=== PATIENT | female | born 1975 | race Caucasian/White ===

== ENCOUNTER 2020-06-09 15:00 | Outpatient (RCR) | payer OTHER, SELFPAY | END 2020-06-11 23:59 | LOC: NS 15:00 | PROVIDERS: PCP Nurse Practitioner; Visit Provider Nurse Practitioner | DX: Z71.3 Dietary counseling and surveillance (principal); E88.81 Metabolic syndrome and other insulin resistance; G47.10 Hypersomnia, unspecified; I10 Essential (primary) hypertension; E66.01 Morbid (severe) obesity due to excess calories; Z68.42 Body mass index [BMI] 45.0-49.9, adult | CPT/HCPCS: 97802; 97803 ==

== ENCOUNTER 2020-07-07 15:00 | Outpatient (RCR) | payer OTHER, SELFPAY ==
[2013-09-11 15:48] VITALS: BMI 47.6
== END 2020-07-11 23:59 ==
LOC: NS 15:00
PROVIDERS: PCP Nurse Practitioner; Visit Provider Nurse Practitioner
DX: Z71.3 Dietary counseling and surveillance (principal); E88.81 Metabolic syndrome and other insulin resistance; E66.01 Morbid (severe) obesity due to excess calories; G47.10 Hypersomnia, unspecified; I10 Essential (primary) hypertension; Z68.42 Body mass index [BMI] 45.0-49.9, adult
CPT/HCPCS: 97803

== ENCOUNTER 2020-08-04 15:44 | Outpatient (RCR) | payer OTHER, SELFPAY ==
[2013-09-11 15:48] VITALS: BMI 47.6
== END 2020-08-11 23:59 ==
LOC: NS 15:44
PROVIDERS: PCP Nurse Practitioner; Visit Provider Nurse Practitioner
DX: E88.81 Metabolic syndrome and other insulin resistance (principal); E66.01 Morbid (severe) obesity due to excess calories; G47.10 Hypersomnia, unspecified; I10 Essential (primary) hypertension; Z68.42 Body mass index [BMI] 45.0-49.9, adult
CPT/HCPCS: 97803

== ENCOUNTER 2020-08-19 09:29 | Outpatient (RCR) | payer OTHER, SELFPAY ==
[2013-09-11 15:48] VITALS: BMI 47.6
== END 2020-09-10 23:59 ==
LOC: NS 09:29
PROVIDERS: PCP Nurse Practitioner; Visit Provider Nurse Practitioner
DX: E88.81 Metabolic syndrome and other insulin resistance (principal); E66.01 Morbid (severe) obesity due to excess calories; G47.10 Hypersomnia, unspecified; I10 Essential (primary) hypertension; Z68.42 Body mass index [BMI] 45.0-49.9, adult
CPT/HCPCS: 97803

== ENCOUNTER 2020-09-30 14:00 | Outpatient (RCR) | payer OTHER, SELFPAY ==
[2013-09-11 15:48] VITALS: BMI 47.6
== END 2020-10-11 23:59 ==
LOC: NS 14:00
PROVIDERS: PCP Nurse Practitioner; Visit Provider Nurse Practitioner
DX: E88.81 Metabolic syndrome and other insulin resistance (principal); E66.01 Morbid (severe) obesity due to excess calories; G47.10 Hypersomnia, unspecified; I10 Essential (primary) hypertension; Z68.42 Body mass index [BMI] 45.0-49.9, adult
CPT/HCPCS: 97803

== ENCOUNTER 2020-11-03 14:58 | Outpatient (RCR) | payer OTHER, SELFPAY ==
[2013-09-11 15:48] VITALS: BMI 47.6
== END 2020-11-11 23:59 ==
LOC: NS 14:58
PROVIDERS: PCP Nurse Practitioner; Visit Provider Nurse Practitioner
DX: E88.81 Metabolic syndrome and other insulin resistance (principal); E66.01 Morbid (severe) obesity due to excess calories; G47.10 Hypersomnia, unspecified; I10 Essential (primary) hypertension; Z68.42 Body mass index [BMI] 45.0-49.9, adult
CPT/HCPCS: 97803

== ENCOUNTER 2020-12-02 15:00 | Outpatient (RCR) | payer OTHER, SELFPAY | END 2020-12-11 23:59 | LOC: NS 15:00 | PROVIDERS: PCP Nurse Practitioner; Visit Provider Nurse Practitioner | DX: E88.81 Metabolic syndrome and other insulin resistance (principal); E66.01 Morbid (severe) obesity due to excess calories; G47.10 Hypersomnia, unspecified; I10 Essential (primary) hypertension; Z68.42 Body mass index [BMI] 45.0-49.9, adult | CPT/HCPCS: 97803 ==

== ENCOUNTER 2020-12-29 10:23 | Outpatient (RCR) | payer OTHER, SELFPAY | END 2021-01-11 23:59 | LOC: NS 10:23 | PROVIDERS: PCP Nurse Practitioner; Visit Provider Nurse Practitioner | DX: E88.81 Metabolic syndrome and other insulin resistance (principal); E66.01 Morbid (severe) obesity due to excess calories; G47.10 Hypersomnia, unspecified; I10 Essential (primary) hypertension; Z68.42 Body mass index [BMI] 45.0-49.9, adult | CPT/HCPCS: 97803 ==

== ENCOUNTER 2021-03-20 15:07 | Outpatient (CLI) | payer OTHER, SELFPAY ==
--- NOTE | 2021-03-20 15:16 | RAD_ITS ---
STUDY: X-RAY CHEST REASON FOR EXAM: Female, 46 years old. COUGH TECHNIQUE: PA and lateral views of the chest. COMPARISON: Comparison is made with prior study dated 09/11/2013. FINDINGS: I suspect an early right middle lobe infiltrate. There is no demonstrated pleural abnormality. Normal size heart. Normal mediastinum and juan diego. Normal visualized pulmonary arteries. Normal visualized aortic arch and descending thoracic aorta. Normal visualized thoracic spine. Normal visualized ribs, clavicles, and shoulders. There is no demonstrated abnormality of the visualized soft tissue structures of the upper abdomen. RAD/Chest PA and Lateral IMPRESSION: I suspect an early right middle lobe infiltrate. Electronically Signed: Darwin Valiente MD at 15:34 EST , Service support ,
== END 2021-03-20 23:59 | disposition short-term general hospital (02) ==
LOC: MTRAD 15:14
PROVIDERS: PCP Nurse Practitioner; Referring Provider Internal Medicine; Visit Provider Internal Medicine
DX: R05.9 Cough, unspecified (principal)
CPT/HCPCS: 71046

== ENCOUNTER → 2021-07-14 | Outpatient (CLI) | payer OTHER, SELFPAY ==
--- NOTE | 2021-07-14 14:19 | VDLE_ITS ---
Reason For Study: Pain RIGHT GSV is normal. CFV is compressible, spontaneous, phasic, competent and demonstrates normal augmentation. FV is compressible, spontaneous, phasic, competent and demonstrates normal augmentation. POP V is compressible, spontaneous, phasic, competent and demonstrates normal augmentation. T/P Trunk is compressible. PTV is compressible. RT PerV is compressible. Procedure This is a venous duplex using B-mode, color flow and spectral Doppler. Exam performed in department. A preliminary report was called and/or faxed to [facility]. VL/Venous Duplex US, Unilateral Interpretation Summary Deep veins of the right lower extremity are patent and compressible segmentally . There is no evidence of right lower extremity deep vein thrombosis. Valvular competence marquita ears intact within the proximal deep venous system on the right . The right great saphenous vein a ppears patent and compressible segmentally. Ordering Physician: Arpita Machado Referring Physician: Bridget Waddell M.D. Performed By: Jazzy Sampson RVT
== END | disposition home or self-care (01) ==
LOC: CVS 14:18
PROVIDERS: PCP Internal Medicine; Referring Provider Internal Medicine; Visit Provider Internal Medicine
DX: M79.604 Pain in right leg (principal)
CPT/HCPCS: 93971

== ENCOUNTER 2021-10-29 17:00 | Outpatient (RCR) | payer OTHER, SELFPAY ==
--- NOTE | 2021-10-01 18:25 | HP.PTEVAL_ITS ---
Patient's Visit Information MICHAEL WALTER is a 46 year old F referred to Physical Therapy by MOJGAN LAWRENCE NP-C with a diagnosis of TEAR MEDIAL MENISCUS INJURY RUGHT KNEE ,S/P ATHROSCOPIC SURGEY RIGHT KNEE. Date of Evaluation: 10/01/21 Physical Therapist: Balbir Robbins, PT, Cert MDT, OCS - Visit Plan Frequency: 2x /Week Duration: 4 Weeks Plan: PT INTERVETIONS ROM KNEE ,FLEXABLITY ,GRADED PRE'S QUADS/HAMS/HIP ,,NUSTEP/BIKE ,FUNCTIONAL STRENGTHENING AND MODALTIES - Subjective This 46 y/o female presents to physical therapy with right meniscectomy right. Patient developed knee pain since June ,reports onset was just woke up with pain knee and calf and did US to R/O DVT. Seen DR Soto orthopedic ,did MRI 's showed meniscus tear. Then had right knee arthroscopic partial medial /lateral meniscectomies and chondroplasty on 09/16/21 . Patient d/c same DOS with WBAT and no crutches. Seen [employer] removed sutures and start PT. Recommended PT . [facility] . Patient denies paresthesia/tingling. Aggravating factors standing ,walking and stairs with difficulty , unable to squat /kneeling. Alleviating factors rest /ice. Patient sleeping good at night. Patient RTW . Patient goals are to return to normal activity. SOCIAL: . VOACTION: [facility] [place] - Pain Right Knee Pain Intensity (Out of 10): 5 Pain Intensity Range: 9 - Objective POSTURE: genu valgus ,and recurvatum. GAIT: antalgic gait right side with decrease swing phase. NEURO: intact. PALPATION: medial/lateral joint line. SKIN: mild ecchymosis. AROM: 4-110 degrees supine knee flexion. MMT ( peak force) : quads 21.7,hamstrings 22.9 ,hip flexion 23.7. FLEXABILITY: hamstrings min tight - Balance/Special Test Scores Lower Extremity Functional Score: 31 - Goals Goal 1:: Patient to be I with HEP ROM /strength Goal Time Frame: 4-6 Weeks Goal 2:: Patient to normalize gait Goal Time Frame: 4-6 Weeks Goal 3:: Patient to improve AROM knee flexion 0-125 degrees to improve function and stairs Goal Time Frame: 4-6 Weeks Goal 4:: Patient to improve peak force of quads/hams by 10 to improve function and ADLS' Goal Time Frame: 4-6 Weeks Goal 5:: Patient to improve LFES score by 10 points to improve QOL and function Goal Time Frame: 4-6 Weeks - Rehabilitation Potential Physical Therapy Diagnosis: This patient underwent s/p meniscectomies medial/lateral and chondroplasty right knee with pain ,edema ,decrease ROM ,strength impairs function with walking impairs ADLS and job/housework thus benefit from skilled PT Rehabilitation Potential: Good - Anticipated Interventions Patient/Client Instruction: Educate patient on: Condition, Plan of Care For the Purpose of:: To decrease pain, To increase ROM, To improve muscle performance and motor function, To improve ability to perform ADL's, To increase tolerance to activity/condition/position, To improve ability of physical actions for home/community/work/leisure, To improve gait and locomotor functions, To improve health of tissue, To decrease soft tissue restriction, To increase flexibility/ROM Therapeutic Exercise to Include: Strength training, Endurance training, Balance training, Flexibilty training, Passive ROM, Active ROM Comment: QUADS/HAMS/HIP For the Purpose of:: To decrease pain, To increase ROM, To improve muscle performance and motor function, To improve ability to perform ADL's, To increase tolerance to activity/condition/position, To improve ability of physical actions for home/community/work/leisure, To improve gait and locomotor functions, To decrease soft tissue restriction, To increase flexibility/ROM TENS: Yes IF ES: Yes Cryotherapy (ice pack, ice massage): Yes Thermo therapy (hot pack): Yes For the Purpose of:: To decrease pain, To decrease swelling/inflammation, To increase ROM, To improve nutrient delivery to tissue, To increase oxygenation perfusion, To improve health of tissue, To decrease soft tissue restriction Thank you for the opportunity to evaluate your patient. For Medicare and Medicare HMO plans, please review the plan of care and approve it. It will need to be FAXED BACK to us at [phone] for Medicare purposes. For Medicare only, by signing this I certify the plan of care. Please let me know if there are questions or concerns regarding this plan of care. Physician S ignature: Date:
--- NOTE | 2021-10-29 18:03 | HP.PTDCSUM ---
It has been my pleasure to treat MICHAEL WALTER referred by MOJGAN LAWRENCE, CHELLY-Abdoul, with the diagnosis of TEAR MEDIAL MENISCUS INJURY RUGHT KNEE ,S/P ATHROSCOPIC SURGEY RIGHT KNEE for a total of 7 visit(s). Discharge Date: 10/29/21 Please see the following information for a summary of their discharge status. Subjective: Patient plan to join . Patient major concern stairs descending stairs Right Knee Pain Intensity (Out of 10): 1 Objective/Function: POSTURE: bilateral knee genus hyperrecurvatum. GAIT: mild decrease stance time right LE. STAIRS: ascend/descend 12 steps alternating but pain full descending in anterior patella. AROM: supine knee flexion 0-120 degrees. MMT: PEAK FORCE QUADS 32.7 ,HAMS 37.8 Goal 1:: Patient to be I with HEP ROM /strength Goal Progress: Goal Met Goal 2:: Patient to normalize gait Goal Progress: Goal Met Goal 3:: Patient to improve AROM knee flexion 0-125 degrees to improve function and stairs Goal Progress: Goal Met Goal 4:: Patient to improve peak force of quads/hams by 10 to improve function and ADLS' Goal Progress: Goal Met Goal 5:: Patient to improve LFES score by 10 points to improve QOL and function Goal Progress: Goal Met Plan: D/C AND TO [facility] Dis[facility] Comments[facility] If there are questions or concerns regarding this patient's physical therapy, please feel free to call me at [phone]. Thank you for the referral of this patient. Sincerely, Balbir Robbins, PT, Cert MDT, OCS Balance/Gait/Functional tests - Balance/Special Test Scores Lower Extremity Functional Score: 31
== END 2021-10-29 19:00 | disposition home or self-care (01) ==
LOC: PT 17:00
PROVIDERS: PCP Internal Medicine; Referring Provider Nurse Practitioner Family; Visit Provider Nurse Practitioner Family
DX: S83.241D Other tear of medial meniscus, current injury, right knee, subsequent encounter (principal); Z98.890 Other specified postprocedural states
CPT/HCPCS: 97014; 97110; 97162; G0283

== ENCOUNTER → 2022-04-27 | Outpatient (CLI) | payer OTHER, SELFPAY ==
--- NOTE | 2022-04-27 07:01 | MRI_ITS ---
STUDY: MRI RIGHT KNEE REASON FOR EXAM: Female, 47 years old. Right knee pain. TECHNIQUE: Standardized fat and water weighted pulse sequences were obtained in all 3 orthogonal planes. COMPARISON: Right knee x-rays dated December 2021. FINDINGS: Complex tear posterior horn of the medial meniscus with extrusion of the body and anterior horn (coronal series 6 images 8-18). Moderate thinning of the articular cartilage of the medial femorotibial compartment with reactive subchondral bone marrow edema and osteophytes (coronal series 6 images 10-19). Mild MCL sprain (coronal series 6 image 14). Normal distal semimembranosus, gracilis and semitendinosus tendons. Loss of substance of the posterior horn and body of the lateral meniscus which may be secondary to partial meniscectomy (coronal series 6 and is 11-18). Mild thinning of the articular cartilage of the lateral femorotibial compartment (coronal series 6 images 11-17). Normal lateral femoral condyle and tibial plateau. Normal proximal tibiofibular articulation. Normal lateral collateral (fibular) ligament. Normal popliteus tendon. Normal biceps femoris tendon. Normal anterior cruciate ligament (ACL). Normal posterior cruciate ligament (PCL). Lateral tilt and subluxation of the patella with moderate thinning of the articular cartilage of the patellofemoral compartment with osteophytes (axial series 2 images 11-18). Normal medial and lateral patellar retinaculum. Normal quadriceps tendon. Normal patellar tendon. Normal Hoffa''s fat pad. Moderate-sized joint effusion with medial plica (axial series 2 images 5-17). Prepatellar subcutaneous soft tissue edema (sagittal series 4 image 8). The otherwise visualized osseous structures are unremarkable. MRI/Lower Ext Joint Only (Routine) IMPRESSION: Complex tear of the posterior horn of the medial meniscus with extrusion of the body and anterior horn. Moderate thinning of the articular cartilage of the medial femorotibial compartment. MCL sprain. Loss of substance of the posterior horn of the lateral meniscus which may be secondary to partial meniscectomy. Mild thinning of the articular cartilage of the lateral femorotibial compartment. Lateral tilt and subluxation of the patella with moderate thinning of the articular cartilage of the patellofemoral compartment. Prepatellar subcutaneous soft tissue edema. Moderate-sized joint effusion with medial plica. Electronically Signed: Britotn Caldwell, at 11:31 EST ,
== END | disposition home or self-care (01) ==
PROVIDERS: PCP Internal Medicine; Referring Provider Orthopaedic Surgery; Visit Provider Orthopaedic Surgery
DX: M25.561 Pain in right knee (principal); G89.29 Other chronic pain
CPT/HCPCS: 73721

== ENCOUNTER 2022-05-21 05:44 | Day surgery (SDC) | payer OTHER, SELFPAY ==
[2022-05-21] VITALS (7 sets, daily range): BP systolic 123–144; BP diastolic 75–90; PULSE 66–83; RESP 16–18; TEMP 36.2–36.8; O2SAT 92–98; BMI 50.4
[2022-05-21] MEDS: Lactated Ringers 1,000 ML 15 ML IV (06:20)
[2022-05-21 06:29] LABS: Internal QC Validated? YES +Cl - CLEAR BKGD; Pregnancy, Urine Negative Negative
--- NOTE | 2022-05-21 07:12 | HP.PCM_ITS ---
History and Physical Date of Admission: 05/21/22 [facility] [address] [place] [address] OFFICE VISIT Date of Service:? 05/03/22 MR#: [id number] Acct: [id number] Name:MICHAEL RAMSAY Rep #: [id number] : 1975 ? ? Provider: Dr. Faisal Jackson, DO Age/Sex:? 47/F ? ? Location: [facility] [place] Status: Signed
--- NOTE | 2022-05-21 07:12 | PCM.HP.BLA ---
History and Physical Date of Admission: 05/21/22 [facility] [address] [place] [address] OFFICE VISIT Date of Service:? 05/03/22 MR#: [id number] Acct: [id number] Name:MICHAEL RAMSAY Rep #: [id number] : 1975 ? ? Provider: Dr. Faisal Jackson DO Age/Sex:? 47/F ? ? Location: [facility] [place] Status: Signed Intake Intake Visit Reasons:?RIGHT KNEE Accompanied by: Sister Is patient in pain?: Yes Allergies tetanus toxoid, adsorbed Allergy (Intermediate, Verified 05/03/22 08:00) OtherPenicillins Allergy (Verified 05/03/22 08:00) Unknown Medications citalopram 40 mg tablet (Celexa) 40 mg PO 09/11/13 [History Confirmed 05/03/22] armodafinil 200 mg tablet 200 mg PO QAM 12/23/21 [History Confirmed 05/03/22] buspirone 15 mg tablet 15 mg PO BID 12/23/21 [History Confirmed 05/03/22] lisinopril 20 mg-hydrochlorothiazide 12.5 mg tablet 1 tab PO BID 12/23/21 [History Confirmed 05/03/22] gabapentin 100 mg capsule 100 mg PO 12/28/21 [History Confirmed 05/03/22] meloxicam 15 mg tablet 15 mg PO DAILY #30 tabs 02/01/22 [Rx Confirmed 05/03/22] celecoxib 200 mg capsule (Celebrex) 200 mg PO BID PRN pain #40 caps 03/24/22 [Rx Confirmed 05/03/22] lansoprazole 30 mg capsule,delayed release 30 mg PO QAM #90 caps 04/19/22 [Rx Confirmed 05/03/22] PFSH Medical History?(Updated 03/24/22 @ 15:[address] Faisal Jackson DO) ADD (attention deficit disorder) Anxiety B12 deficiency Chronic headaches Fibrocystic breast GERD (gastroesophageal reflux disease) Hiatal hernia HTN (hypertension) Narcolepsy without cataplexy Obesity Palpitations Polycystic ovarian syndrome Pure hypercholesterolemia, unspecified Surgical History? History of back surgery History of endometrial ablation Family History? Mother Graves disease Osteoporosis Social History? Smoking Status:? Current some day smoker alcohol intake:? current alcohol intake frequency: holidays/special occasions only HPI RIGHT KNEE Details: Parts of this documentation were recorded by a scribe, this documentation accurately reflects the service provided and the decisions made by me, Dr. Faisal Jackson, DO 05/03/22 0742. MICHAEL WALTER is a 47 year old F here today for a followup on her right knee. She complains of pain over her posterior knee. Patient has popping and clicking which is not painful. She denies any knee instability. Patient has a burning pain of her knee and very sensitive over her right foot. Patient had an MRI which is here for review. Ortho Exam General General: Yes no acute distress Neurologic: Yes alert and Yes oriented x3 Psychologic: Yes reasonable and appropriate Right Knee Skin/Wound: Yes CDI, No erythema, No ecchymosis and No swelling Homans Sign: No Knee ROM: Yes ROM-Extension -20 to 0 and No ROM-Flexion 0-140 Examination: Yes Med jt line tenderness, No Lat jt line tenderness, No Crepitus and No Illiotibial band tenderness Stability: NML: Anterior Drawer, NML: Posterior Drawer, NML: Valgus 30 and NML: Varus 30 Patella Grind: No Head: Normocephalic Atraumatic Chest: symmetrical rise, non-labored breathing, no audible wheeze Abdomen: no guarding, non-rigid Supplemental Info 04/27/2022 MRI right knee: Joint effusion complex tear posterior horn medial meniscus with extrusion and anterior horn moderate thinning of the articular cartilage of the medial compartment with underlying reactive bone marrow edema and osteophytes post meniscectomy changes posterior horn lateral meniscus mild thinning of the cartilage of the lateral compartment moderate thinning of the articular cartilage of the patellofemoral compartment with osteophytes medial plica 12/28/2021 x-ray right knee: Medial and lateral joint space narrowing there is spurring noted throughout all compartments of the knee 09/16/2021 operative report from [facility] Dr. Favian Soto: Grade 2 changes of the patella requiring chondroplasty complex tear posterior horn medial meniscus requiring partial meniscectomy documented normal ACL bucket-handle tear tear of the lateral meniscus requiring partial lateral meniscectomy 07/24/2021 MRI right knee report from [facility]: Partially discoid medial meniscus with radial tear posterior horn high-grade chondromalacia patella joint effusion Coding Level of Care Code Off vis,est,level 3 Diagnoses Osteoarthritis of right knee? M17.11 Tear of medial meniscus of right knee? S83.241A Assessment and Plan Assessment and Plan (1) Osteoarthritis of right knee: ?Status:?Acute (2) Tear of medial meniscus of right knee: Plan Educated the patient about the anatomy of the knee and developing osteoarthritis and a complex tear of her medial meniscus. Spoke with the patient about her options- knee arthroscopy but explained she might continue to have pain due to her osteoarthritis, total knee arthroplasty, steroid injection, Zilretta injection vs viscosupplementation injection. Explained that she will need to lower her BMI for a total knee arthroplasty. She will need to be at 225 pounds.? She may have a steroid injection following a knee arthroscopy if she continues to have pain post op. Spoke with the patient about her surgery procedure. She may be weightbearing as tolerated post op. Spoke with her about the risk of blood clot.? Patient may return to work when she feels comfortable. Patient takes celebrex for pain which is somewhat helpful. She will need to stop all NSAIDs 7 days prior to surgery. She is able to drive when she feels comfortable post op. Referred the patient to the [facility] program. Reviewed the pre-operative plans with the patient. Risks and benefits of the procedure were fully explained, including but not limited to infection, neurovascular injury, continued pain, arthritis, stiffness, need for further surgery, re-injury, DVT, PE, general risks of anesthesia, and loss of limb or life. The patient understands all the risks and does wish to proceed with written consent. Follow up for 2 week post op or sooner if pain, swelling, numbness or associated symptoms, or concerns develop.? All questions answered. Patient in agreement of plan. 05/03/22 0919 <Electronically signed by Faisal Borruso DO> Date Faisal Borruso DO Cosigner Signature: Date (if applicable) ? CC: ? ~I have examined the patient the following changes are noted:
[2022-05-21] MEDS: Clindamycin 900 MG/50 ML BAG 75 MG IV (07:26)
[2022-05-21] MEDS: Epinephrine (1 mg/ml) 1 MG/ML VIAL OPERA.SITE (07:54)
[2022-05-21] MEDS: Lidocaine 1% /Epi 1:100 (20ml) 20 ML Vial OPERA.SITE (07:54)
[2022-05-21] MEDS: MethylPREDNISolone Acetate 40 MG/ML Vial IM (08:10)
[2022-05-21] MEDS: Bupivacaine Mpf 0.5% 30 ML VIAL OPERA.SITE (08:10)
--- NOTE | 2022-05-21 08:28 | PCM.OP.BLANK ---
Operative Report Date of Procedure: 05/21/22 Preop diagnosis: Right knee DJD medial and lateral meniscus tear plica band Postoperative diagnosis: [Right knee grade 4 cartilage wear medial femoral condyle diffuse grade 3 cartilage wear throughout the medial lateral and patellofemoral compartment medial plica band, degenerative medial and lateral meniscus tear. Procedure: Right knee arthroscopic partial medial partial lateral meniscectomy excision of plica Anesthesia: General Estimated blood loss: 5 mL Tourniquet time: 20 minutes 300 mmHg Complications: none Indication for procedure: 47-year-old female patient who has had ongoing mechanical knee pain due to previous knee arthroscopy and MRI evidence of medial lateral meniscus tear she does have known DJD however her weight precludes her from total knee arthroplasty at this time and she did wish to proceed with an elective arthroscopic surgery to attempt to alleviate the symptoms. Risk benefits and alternatives of the procedure were reviewed including risk of bleeding infection nerve artery tissue damage need for further surgery continued pain secondary to arthritis extended postoperative course secondary to inflammation from surgery and her coexisting arthritis and expected postoperative course. Procedure: The patient was met in the preoperative holding area. The operative extremity was identified by both patient and physician and family and marked. Patient was brought back to the operating room on a wheeled cart and transferred to the operating table in the supine position. Anesthesia was started. A well-padded tourniquet was placed on the operative extremity. A lower extremity leg hills was secured to the operative extremity. The contralateral extremity was well-padded and the end of the bed was flexed to 90 degrees. The patient was prepped and draped in the usual sterile fashion. A timeout was called to ensure the proper patient, procedure, and extremity were being contemplated. 0.5% Marcaine with epinephrine was injected into the planned incisional areas under the skin only. An Esmarch was used to exsanguinate the extremity and the tourniquet was inflated. An 11 blade scalpel was used to make a stab incision in the anterior lateral portal. The arthroscope was inserted into the intercondylar notch and inflow and outflow tubes were attached. Arthroscopic visualization began. The medial compartment was entered. An 18-gauge spinal needle was used to establish the placement for anterior medial portal. An 11 blade scalpel was used to make a stab incision. Blunt probe was inserted followed by a meniscal probe. There was noted to be degenerative appearance to the meniscus there was a partial-thickness root tear which was debrided with a shaver and some undersurface tearing of the posterior horn medial meniscus, and some anterior horn tearing also well as grade 4 cartilage wear of the periphery of the medial femoral condyle and diffuse grade III chondromalacia throughout the medial compartment the ACL was found to be intact. The lateral compartment was entered there was noted be diffuse grade 3 cartilage wear there was a generative appearance to the meniscus as well there was radial tearing of the body and posterior horn which was debrided with a shaver The arthroscope was switched to the medial portal to complete the procedure. The medial and lateral gutters were inspected and were free of loose bodies. The patellofemoral joint was inspected diffuse grade 3 cartilage wear. There was good patellar tracking there was a medial thickened plica which was excised the knee was thoroughly irrigated and drained. An intra-articular injection with 5 cc 0.5% Marcaine plain and 40 mg of Depo-Medrol was injected intra-articularly. The arthroscope was removed the portals were closed with 3-0 nylon arthroscopic stitches. Followed by Xeroform 4 x 4's ABDs web roll and an Fortunato wrap. The tourniquet was let down and the drapes were removed. All counts were correct. The patient was brought back to the PACU in stable condition.
--- NOTE | 2022-05-21 08:43 | DCINST_ITS ---
Discharge Instructions Diet Discharge Diet: No restrictions Activity Weight Bearing Status: Weight bearing as tolerated Keep extremity elevated above heart level: Operative Extremity Dressing / Incision Call your doctor if you observe: Shortness of breath and Chest pain Additional Dressing/Incision Instructions:: Ice and elevate next 72 hours .keep dressing on clean and dry for 48 hours then may remove begin showering daily but do not submerge in tub or pool. After shower may apply Band-Aids . Encourage knee range of motion weightbearing as tolerated, use crutches until confident in knee then may discontinue. No strenuous activity. When not ambulating keep iced and elevated next 72 hours. Do not mix pain medication with recreational drugs or alcohol only take as prescribed can be addictive and abusive, call with any questions or concerns. Follow Up Care Please Follow Up With: Faisal Jackson DO When: 2 weeks Test Results: Test results from this visit will be discussed in further detail at your follow- up appointment, if applicable. Discharge Plan Admission Primary Reason for Your Visit: Right knee arthroscopy Attending Provider: Faisal Jackson Primary Care Provider: Bridget Waddell Discharge Orders/Prescriptions Prescriptions: New oxycodone 5 mg tablet 5 - 10 mg PO Q4H PRN (Reason: pain) 7 Days Qty: 30 0RF Rx Instructions: Supplement with Celebrex and Tylenol medication can be addictive only take as needed No Action buspirone 15 mg tablet 15 mg PO BID lisinopril-hydrochlorothiazide 20-12.5 mg tablet 1 tab PO BID armodafinil 200 mg tablet 200 mg PO QAM citalopram [Celexa] 40 MG tablet 40 mg PO QHS vitamin D3-vitamin K2 250 mcg (10,000 unit)-45 mcg Capsule 1 cap PO DAILY levothyroxine [Synthroid] 50 mcg Tablet 50 mcg PO DAILY lansoprazole 30 mg capsule,delayed release(DR/EC) 30 mg PO QAM Qty: 90 3RF celecoxib [Celebrex] 200 mg capsule 200 mg PO BID PRN (Reason: pain) Qty: 40 0RF Rx Instructions: do not take In combination with other NSAIDs including meloxicam or nabumetone. Referrals / Follow Up: Bridget Waddell DO [Primary Care Provider] - Disposition Disposition (needs filled in before D/C Order can be placed): Home, Self Care
[2022-05-21] MEDS: oxyCODONE 5 MG Tablet PO (09:56)
== END 2022-05-21 10:59 | disposition home or self-care (01) ==
LOC: SDC 05:46 → AC 05:47
PROVIDERS: Anesthesiology; PCP Internal Medicine; Referring Provider Orthopaedic Surgery; Visit Provider Orthopaedic Surgery
PROC: (CPT 29870; principal; 2022-05-21 07:10)
DX: M17.11 Unilateral primary osteoarthritis, right knee (principal); E66.01 Morbid (severe) obesity due to excess calories; S83.241A Other tear of medial meniscus, current injury, right knee, initial encounter; F17.200 Nicotine dependence, unspecified, uncomplicated; I10 Essential (primary) hypertension; F98.8 Other specified behavioral and emotional disorders with onset usually occurring in childhood and adolescence; E78.00 Pure hypercholesterolemia, unspecified; K21.9 Gastro-esophageal reflux disease without esophagitis
CPT/HCPCS: 29880; 81025; J7120; J2405

== ENCOUNTER 2022-05-27 13:10 | Outpatient (RCR) | payer OTHER, SELFPAY | END 2022-06-11 23:59 | LOC: NS 13:10 | PROVIDERS: PCP Internal Medicine; Referring Provider Orthopaedic Surgery; Visit Provider Orthopaedic Surgery | DX: Z71.3 Dietary counseling and surveillance (principal); E66.01 Morbid (severe) obesity due to excess calories; Z68.43 Body mass index [BMI] 50.0-59.9, adult | CPT/HCPCS: 97802 ==

== ENCOUNTER 2022-05-30 10:55 | Emergency (ER) | payer OTHER, SELFPAY ==
[2022-05-30 10:57] VITALS: BP 197/93; PULSE 106; RESP 18; TEMP 38.6; O2SAT 96; BMI 51.1
--- NOTE | 2022-05-30 11:12 | EX.ED.DYSGE1 ---
HPI <ANDRZEJ Santos - Last Filed: 05/30/22 14:41> History of Present Illness Chief Complaint: Lower Extremity Injury Narrative Narrative: 47-year-old female had right medial meniscus repair with Dr. Jackson on May 21. She started walking more 2 days ago and having increased pain to the point she cannot ambulate today without a walker. The knee has become more swollen and the lateral incision had a small amount of pus draining. Today she developed a fever. She took Celebrex around 9 AM for the pain and fever. She has no other infectious symptoms, no upper respiratory symptoms, no nausea vomiting or diarrhea. [facility] <ANDRZEJ Santos - Last Filed: 05/30/22 14:41> [facility] Medical History (Updated 05/30/22 @ 19:[address] Van Avila DO) ADD (attention deficit disorder) Anxiety Arthritis B12 deficiency CPAP (continuous positive airway pressure) dependence Fibrocystic breast Gastric reflux GERD (gastroesophageal reflux disease) Hiatal hernia History of edema History of pain when walking HTN (hypertension) Narcolepsy without cataplexy Obesity Polycystic ovarian syndrome Pure hypercholesterolemia, unspecified Shortness of breath on exertion Smoker Thyroid disease Wears glasses Home Medications citalopram 40 mg tablet (Celexa) 40 mg PO QHS 09/11/13 [History Last Taken 05/20/22] armodafinil 200 mg tablet 200 mg PO QAM 12/23/21 [History Last Taken 05/20/22] buspirone 15 mg tablet 15 mg PO BID 12/23/21 [History Last Taken 05/20/22] lisinopril 20 mg-hydrochlorothiazide 12.5 mg tablet 1 tab PO BID 12/23/21 [History Last Taken 05/20/22] lansoprazole 30 mg capsule,delayed release 30 mg PO QAM #90 caps 04/19/22 [Rx Last Taken 05/20/22] levothyroxine 50 mcg tablet (Synthroid) 50 mcg PO DAILY 05/14/22 [History Last Taken 05/20/22] vitamin D3 250 mcg (10,000 unit)-vitamin K2 45 mcg capsule 1 cap PO DAILY 05/14/22 [History Last Taken 05/20/22] celecoxib 200 mg capsule (Celebrex) 200 mg PO BID PRN pain #40 caps 05/18/22 [Rx Last Taken Unknown] oxycodone 5 mg tablet 5 - 10 mg PO Q4H PRN pain 7 days #30 tabs 05/21/22 [Rx Last Taken Unknown] oxycodone-acetaminophen 5 mg-325 mg tablet (Percocet) 1 tab PO Q6H PRN pain 3 days #12 tabs 05/30/22 [Rx Last Taken Unknown] Allergy/AdvReac Type Severity Reaction Status Date / Time Penicillins Allergy Severe Hives Verified 05/30/22 10:59 tetanus toxoid, adsorbed Allergy Intermediate Other Verified 05/30/22 10:59 Family History (Reviewed 02/25/22 @ 11:49 by Becky Valverde AUTHORIZATION COORDINATOR, AUTHORIZATION COORDINATOR-C) Mother Graves disease Osteoporosis Surgical History (Updated 05/14/22 @ 13:11 by Chuyita Hagen) History of back surgery History of endometrial ablation Hx of arthroscopic knee surgery Hx of shoulder surgery Social History (Reviewed 02/25/22 @ 11:49 by Becky Valverde AUTHORIZATION COORDINATOR, AUTHORIZATION COORDINATOR-C) Smoking Status: Current some day smoker tobacco type: cigarettes alcohol intake: current alcohol intake frequency: holidays/special occasions only ROS <ANDRZEJ Santos - Last Filed: 05/30/22 14:41> ROS ED ROS Narrative Constitutional: Positive for fever negative for chills. ENT: Negative for sore throat, ear pain, rhinorrhea. CVS: Negative for chest pain. Respiratory: Negative for shortness of breath, cough. GI: Negative for abdominal pain, nausea, vomiting, diarrhea. : Negative for dysuria. Neuro: Negative for motor/sensory dysfunction. Skin: Negative for rash. Musc: Positive for right knee pain, swelling. EXAM <ANDRZEJ Santos - Last Filed: 05/30/22 14:41> Physical Exam Narrative Exam Narrative: CONST: Patient sitting in no acute distress. EYES: Normal inspection. NECK: Normal inspection. RESP: No respiratory distress, CTAB. CVS: Regular rate and rhythm, no murmur, no gallop. SKIN: Right knee has medial and lateral sutures intact, lateral suture line has very small amount of surrounding erythema. EXTREMITIES: Small right knee effusion, warm to touch with diffuse tenderness over the anterior knee with no fluctuance or crepitus, full range of motion, no edema, no deep vein tenderness or palpable cords, 2+ PT pulse. NEURO: Oriented x4. PSYCH: Normal affect. Const Vital Signs: 05/30/22 10:57 05/30/22 12:10 05/30/22 13:30 Temperature 101.4 F H 99.6 F H Temperature Source Temporal Oral Pulse Rate 106 H 97 98 Respiratory Rate 18 18 16 Blood Pressure 197/93 H 150/85 H 118/75 Blood Pressure Mean 127 106 89 Pulse Ox 96 96 95 Oxygen Delivery Method Room Air Room Air Room Air <Dr. Van Avila DO - Last Filed: 05/30/22 19:47> Physical Exam Const Vital Signs: 05/30/22 10:57 05/30/22 12:10 05/30/22 13:30 Temperature 101.4 F H 99.6 F H Temperature Source Temporal Oral Pulse Rate 106 H 97 98 Respiratory Rate 18 18 16 Blood Pressure 197/93 H 150/85 H 118/75 Blood Pressure Mean 127 106 89 Pulse Ox 96 96 95 Oxygen Delivery Method Room Air Room Air Room Air MDM <ANDRZEJ Santos - Last Filed: 05/30/22 14:41> [facility] MDM Narrative Medical decision making narrative: History gathered from: patient, Patient is postop from right medial meniscus surgery on 05/21/2022 and presents with increased right knee pain and a fever. She appears well and nontoxic. She is febrile at 101.4 ?F, HR 106, BP 197/93. She did not take her blood pressure medication this morning. She does have a right knee effusion and significant warmth. No significant erythema, no crepitus or fluctuance. Full range of motion and neurovascularly intact. She has no other signs or symptoms of infection so the highest concern is to rule out a septic joint. Labs, inflammatory markers, and blood cultures will be obtained. Labs show normal white count at 8.8, CRP 42, ESR 17. X-ray shows small joint effusion and osteoarthritis but no acute findings. Right knee arthrocentesis was done?see below for procedure note. Blood-tinged yellow serous fluid was obtained for testing. Cell count shows WBC of 12,000 ruling out infection. I spoke with Dr. Osullivan again, he states with her significant arthritis she likely had an inflammatory process causing an effusion and increased pain. I prescribed [place] to add to her home NSAID for better pain control. She states she has a walker she will use. Orthopedic was advised following up as scheduled on 06/04. Patient was counseled to monitor and return if symptoms worsen. She was discharged in stable condition. Case discussed with: Dr. Jackson, orthopedic surgeon Interventions / MDM: Differential diagnosis: Postop knee infection, postop knee pain, viral syndrome, COVID, influenza Diagnosis considered but do not suspect: N/A My EKG interpretation: N/A Imaging independently reviewed and interpreted by myself: Right knee 4 views: Osteoarthritic change, small joint effusion. External documents reviewed: N/A Test considered but not ordered:N/A ED course: Attending note: Patient seen and evaluated with soft tile setter. I perform my own [id number] evaluation. I agree with the plan of work-up. 9 days postop right knee arthroscopic menisci to me repair. Increase activities over 2 days increasing pain. Overnight fever. States mild headache no cough no urinary symptoms. Increasing knee swelling and pain. Call her orthopedist referred to the ED. Exam alert nontoxic no meningismal findings. Right knee 2 arthroscopic incisions with 2 sutures clean, dry intact. There is warmth more superiorly. No erythema. No drainage from suture sites. Re-evaluation: stable Disposition discussed with patient/family/significant other: Case discussed with consulting clinician: N/A Procedure note: Arthrocentesis. Written consent with the patient. Normal sterile conditions. Timeout performed 1222. Patient right knee placed in slight flexion at 30 degrees, review of patient's imagings osteoarthritic with narrowing medially therefore lateral approach was chosen. Sterile gloves for use for prep, then exchanged for procedure. Right knee was prepped with Betadine, 18-gauge 1-1/2 inch needle approach laterally inferior to the incision, negative pressure there is aspiration of 5 cc dark cloudy yellow fluid with slight mixture of blood. Needle was removed. Pressure from blood drainage, was controlled, bandage was placed. Patient tolerated procedure well. Lab Data Labs: Laboratory Results - last 24 hr 05/30/22 05/30/22 05/30/22 11:20 11:20 12:30 WBC 8.8 RBC 4.55 Hgb 14.5 Hct 43.1 MCV 94.7 MCH 31.9 MCHC 33.6 RDW Std Deviation 41.1 RDW Coeff of Nusrat 12.0 Plt Count 210 MPV 9.2 Immature Gran % (Auto) 0.600 Neut % (Auto) 91.5 H Lymph % (Auto) 4.4 L Dodge % (Auto) 2.9 Eos % (Auto) 0.5 Baso % (Auto) 0.1 Absolute Neuts (auto) 8.1 H Absolute Lymphs (auto) 0.39 L Nucleated RBC % 0 Differential Comment SCANNED ESR 17 Sodium 137 Potassium 3.7 Chloride 105 Carbon Dioxide 24.0 Anion Gap 8 BUN 10 Creatinine 0.82 Estim Creat Clear Calc 72.45 Est GFR (MDRD) Af Amer 95 Est GFR (MDRD) Non-Af 79 BUN/Creatinine Ratio 12.2 Glucose 110 H Calcium 8.8 C-React Prot Ext Range 42.00 H Fluid Source Cancelled Fluid Color Cancelled Fluid Appearance Cancelled Fluid WBC Cancelled Fluid RBC Cancelled Fluid Tot Cell Count Cancelled Fld Polynuclear WBCs # Cancelled Fld Polynuclear WBCs % Cancelled Fluid Mononuclear WBCs Cancelled Fld Mononuclear WBCs % Cancelled Fluid Neutrophils Cancelled Fluid Lymphocytes Cancelled Fluid Monocytes Cancelled Fluid Plasma Cells Cancelled Fluid Macrophages Cancelled Fld Mesothelial Cells Cancelled Fluid Other Cells Cancelled Fluid Crystals NO CRYSTALS SEEN Fluid Crystal Source SYNOVIAL Fl Crystal Path Review Will follow Fl Pathologist Comment Cancelled Fluid Comment 2 Cancelled Synovial Source LEFT KNEE Synovial Color Yellow Synovial Appearance Hazy Synovial WBC 12.7280 H Synovial RBC 0.015 H Synovial Tot Cell Ct 12.7500 H Synov Polynuclear WBCs 11.931 Synov Mononuclear WBCs 0.797 Synovial Neutrophils 100 H Synovial Polynuclear % 93.8 Synovial Mononuclear % 6.[address] Comment May follow Radiography Diagnostic Testing: Clinical Impression(s) from Imaging Studies Knee X-Ray 05/30/22 11:44 IMPRESSION: Moderate osteoarthritis. Joint effusion. Electronically Signed: Kevin Winkler MD at 12:21 EDT , <Dr. Van Avila, DO - Last Filed: 05/30/22 19:47> [facility] MDM Narrative Medical decision making narrative: History gathered from: patient, Patient is postop from right medial meniscus surgery on 05/21/2022 and presents with increased right knee pain and a fever. She appears well and nontoxic. She is febrile at 101.4 ?F, HR 106, BP 197/93. She did not take her blood pressure medication this morning. She does have a right knee effusion and significant warmth. No significant erythema, no crepitus or fluctuance. Full range of motion and neurovascularly intact. She has no other signs or symptoms of infection so the highest concern is to rule out a septic joint. Labs, inflammatory markers, and blood cultures will be obtained. Labs show normal white count at 8.8, CRP 42, ESR 17. X-ray shows small joint effusion and osteoarthritis but no acute findings. Right knee arthrocentesis was done?see below for procedure note. Blood-tinged yellow serous fluid was obtained for testing. Cell count shows WBC of 12,000 ruling out infection. I spoke with Dr. Osullivan again, he states with her significant arthritis she likely had an inflammatory process causing an effusion and increased pain. I prescribed [place] to add to her home NSAID for better pain control. She states she has a walker she will use. Orthopedic was advised following up as scheduled on 06/04. Patient was counseled to monitor and return if symptoms worsen. She was discharged in stable condition. Case discussed with: Dr. Jackson, orthopedic surgeon Interventions / MDM: Differential diagnosis: Postop knee infection, postop knee pain, viral syndrome, COVID, influenza Diagnosis considered but do not suspect: N/A My EKG interpretation: N/A Imaging independently reviewed and interpreted by myself: Right knee 4 views: Osteoarthritic change, small joint effusion. External documents reviewed: N/A Test considered but not ordered:N/A ED course: Attending note: Patient seen and evaluated with soft tile setter. I perform my own [id number] evaluation. I agree with the plan of work-up. 9 days postop right knee arthroscopic menisci to me repair. Increase activities over 2 days increasing pain. Overnight fever. States mild headache no cough no urinary symptoms. Increasing knee swelling and pain. Call her orthopedist referred to the ED. Exam alert nontoxic no meningismal findings. Right knee 2 arthroscopic incisions with 2 sutures clean, dry intact. There is warmth more superiorly. No erythema. No drainage from suture sites. Results after knee aspiration no organisms on Gram stain, WBCs 12,000. Cultures are pending along with crystals. Patient is reassured. We discussed with orthopedics for outpatient follow-up. Prescription for pain medicines. She has a walker at home. Re-evaluation: stable Disposition discussed with patient/family/significant other: Patient and significant other Case discussed with consulting clinician: Orthopedist, Dr. Jackson Procedure note: Arthrocentesis. Written consent with the patient. Normal sterile conditions. Timeout performed 1222. Patient right knee placed in slight flexion at 30 degrees, review of patient's imagings osteoarthritic with narrowing medially therefore lateral approach was chosen. Sterile gloves for use for prep, then exchanged for procedure. Right knee was prepped with Betadine, 18-gauge 1-1/2 inch needle approach laterally inferior to the incision, negative pressure there is aspiration of 5 cc dark cloudy yellow fluid with slight mixture of blood. Needle was removed. Pressure from blood drainage, was controlled, bandage was placed. Patient tolerated procedure well. Lab Data Labs: Laboratory Results - last 24 hr 05/30/22 05/30/22 05/30/22 11:20 11:20 12:30 WBC 8.8 RBC 4.55 Hgb 14.5 Hct 43.1 MCV 94.7 MCH 31.9 MCHC 33.6 RDW Std Deviation 41.1 RDW Coeff of Nusrat 12.0 Plt Count 210 MPV 9.2 Immature Gran % (Auto) 0.600 Neut % (Auto) 91.5 H Lymph % (Auto) 4.4 L Dodge % (Auto) 2.9 Eos % (Auto) 0.5 Baso % (Auto) 0.1 Absolute Neuts (auto) 8.1 H Absolute Lymphs (auto) 0.39 L Nucleated RBC % 0 Differential Comment SCANNED ESR 17 Sodium 137 Potassium 3.7 Chloride 105 Carbon Dioxide 24.0 Anion Gap 8 BUN 10 Creatinine 0.82 Estim Creat Clear Calc 72.45 Est GFR (MDRD) Af Amer 95 Est GFR (MDRD) Non-Af 79 BUN/Creatinine Ratio 12.2 Glucose 110 H Calcium 8.8 C-React Prot Ext Range 42.00 H Fluid Source Cancelled Fluid Color Cancelled Fluid Appearance Cancelled Fluid WBC Cancelled Fluid RBC Cancelled Fluid Tot Cell Count Cancelled Fld Polynuclear WBCs # Cancelled Fld Polynuclear WBCs % Cancelled Fluid Mononuclear WBCs Cancelled Fld Mononuclear WBCs % Cancelled Fluid Neutrophils Cancelled Fluid Lymphocytes Cancelled Fluid Monocytes Cancelled Fluid Plasma Cells Cancelled Fluid Macrophages Cancelled Fld Mesothelial Cells Cancelled Fluid Other Cells Cancelled Fluid Crystals NO CRYSTALS SEEN Fluid Crystal Source SYNOVIAL Fl Crystal Path Review Will follow Fl Pathologist Comment Cancelled Fluid Comment 2 Cancelled Synovial Source LEFT KNEE Synovial Color Yellow Synovial Appearance Hazy Synovial WBC 12.7280 H Synovial RBC 0.015 H Synovial Tot Cell Ct 12.7500 H Synov Polynuclear WBCs 11.931 Synov Mononuclear WBCs 0.797 Synovial Neutrophils 100 H Synovial Polynuclear % 93.8 Synovial Mononuclear % 6.[address] Comment May follow Radiography Diagnostic Testing: Clinical Impression(s) from Imaging Studies Knee X-Ray 05/30/22 11:44 IMPRESSION: Moderate osteoarthritis. Joint effusion. Electronically Signed: Kevin Winkler MD at 12:21 EDT , Discharge Plan Triage Chief Complaint: Lower Extremity Injury ED Midlevel Provider: Macy Sharp ED Provider: Van Avila Dx/Rx/DC Orders Clinical Impression: Acute pain of right knee, Effusion of right knee, Fever, Acute viral syndrome Instructions: ED Knee Effusion Prescriptions: New oxycodone-acetaminophen [Percocet] 5-325 mg tablet 1 tab PO Q6H PRN (Reason: pain) 3 Days Qty: 12 0RF No Action buspirone 15 mg tablet 15 mg PO BID lisinopril-hydrochlorothiazide 20-12.5 mg tablet 1 tab PO BID armodafinil 200 mg tablet 200 mg PO QAM citalopram [Celexa] 40 MG tablet 40 mg PO QHS vitamin D3-vitamin K2 250 mcg (10,000 unit)-45 mcg Capsule 1 cap PO DAILY levothyroxine [Synthroid] 50 mcg Tablet 50 mcg PO DAILY oxycodone 5 mg tablet 5 - 10 mg PO Q4H PRN (Reason: pain) 7 Days Qty: 30 0RF Rx Instructions: Supplement with Celebrex and Tylenol medication can be addictive only take as needed lansoprazole 30 mg capsule,delayed release(DR/EC) 30 mg PO QAM Qty: 90 3RF celecoxib [Celebrex] 200 mg capsule 200 mg PO BID PRN (Reason: pain) Qty: 40 0RF Rx Instructions: do not take In combination with other NSAIDs including meloxicam or nabumetone. Primary Care Provider: Bridget Waddell Referrals: Bridget Waddell DO [Primary Care Provider] - Activity Restrictions/Additional Instructions: Continue Celebrex and use the Percocet every 6 hours as needed. Use your walker until you can bear weight well again. Follow-up with the orthopedic surgeon on Tuesday as scheduled. If you develop redness of the knee or worsening symptoms come back to the ER. Disposition Disposition: Home, Self Care Discharge Date/Time: 05/30/22 14:46
[2022-05-30] MEDS: Ondansetron 4 MG/2 ML Vial IV (11:27)
[2022-05-30] MEDS: Morphine 4 MG/ML Syringe IV (11:27)
[2022-05-30 11:33] LABS: Absolute Lymphocyte Count 0.39 X10^3/uL (0.83-4.51); Absolute Neutrophil Count 8.1 X10^3/uL (2.0-7.7); Basophil# 0.01 X10^3/uL; Basophil% 0.1 % (0-1); Eosinophil# 0.04 X10^3/uL; Eosinophils% 0.5 % (0-5); Hematocrit 43.1 % (37-47); Hemoglobin 14.5 g/dL (12.0-15.0); Lymphocyte # 0.39 X10^3/ul (0.83-4.51); Lymphocyte % 4.4 % (19-41); Mean Corp Hgb Conc 33.6 g/dL (32-36); Mean Corpuscular Hgb 31.9 pg (27.0-32.0); Mean Corpuscular Volume 94.7 fL (81-99); Mean Platelet Vol. 9.2 fl (6.2-12.0); Monocyte# 0.26 X10^3/uL; Monocyte% 2.9 % (0-10); NRBC Flagged by Analyzer 0 % (0-5); Neutrophil # 8.08 X10^3/uL (2.7-7.7); Neutrophil % 91.5 % (47-70); POSITIVE DIFFERENTIAL YES; Platelet Count 210 K/mm3 (150-450); RBC Distribution Width SD 41.1 fl (35.1-43.9); Red Blood Count 4.55 M/mm3 (4.2-5.4); White Blood Count 8.8 K/mm3 (4.4-11.0)
[2022-05-30] MEDS: Acetaminophen 500 MG Tablet 1000 MG PO (11:33)
[2022-05-30 11:44] LABS: Anion Gap 8 (5-15); BUN 10 mg/dL (7-18); BUN/Creat Ratio 12.2 RATIO (10-20); Calcium,Total 8.8 mg/dL (8.5-10.1); Chloride 105 mmol/L (98-107); Creatinine, Serum 0.82 mg/dL (0.55-1.02); EST Glomerular Filtration Rate 79 mL/min (>60); Est Glom Filt Rate - Afr Amer 95 mL/min (>60); Estimated Creatinine Clearance 72.45 ml/min; Glucose 110 mg/dL (74-106); Potassium 3.7 mmol/L (3.5-5.1); Sodium Level 137 mmol/L (136-145)
--- NOTE | 2022-05-30 11:44 | RAD_ITS ---
EXAM: XR RIGHT KNEE COMPLETE, 4 OR MORE VIEWS CLINICAL INDICATION: right knee pain TECHNIQUE: Four or more views of the right knee. This report was created using [employer] report generation technology. COMPARISON: None. FINDINGS: BONES/JOINTS: Narrowing of the medial knee joint compartment and patellofemoral joint space. Small knee joint effusion is present. No acute fracture or subluxation. SOFT TISSUES: Normal. No soft tissue swelling or gas. No radiopaque foreign body. RAD/Knee 4 or More Views IMPRESSION: Moderate osteoarthritis. Joint effusion. Electronically Signed: Kevin Winkler MD at 12:21 EDT ,
[2022-05-30 11:48] LABS: Erythrocyte Sedimentation Rate 17 mm/hr (0-30)
[2022-05-30 11:52] LABS: Differential Indicated SCAN CRITERIA MET
[2022-05-30 11:53] LABS: Differential Comment SCANNED
[2022-05-30 12:10] VITALS: BP 150/85; PULSE 97; RESP 18; TEMP 37.6; O2SAT 96
[2022-05-30 13:30] VITALS: BP 118/75; PULSE 98; RESP 16; O2SAT 95
[2022-05-30] MEDS: oxyCODONE 5 MG Tablet PO (14:35)
[2022-05-30 14:38] LABS: AUTO B FLUID DILUENT BKGD CT WBC <0.1 RBC <0.01 (W<.1,R<.01); CRYSTALS, BODY FLUID NO CRYSTALS SEEN; Pathologist Comment May follow
[2022-05-30 14:39] LABS: Appearance /Synovial Fluid Hazy (CLEAR); Color / Synovial Fluid Yellow (Pale Yellow); RBC /Synovial Fluid 0.015 10^6/uL (0); Source / Synovial Fluid LEFT KNEE; Source- Body Fluid SYNOVIAL; Synovial Fld Mononuclear WBC # 0.797 10^3/ul; Synovial Fld Mononuclear WBC % 6.2 %; Synovial Fld Polynuclear WBC # 11.931 10^3/uL; Synovial Fld Polynuclear WBC % 93.8 %
[2022-05-30 14:41] LABS: Neutrophil 100 % (0-25)
[2022-05-30 14:42] LABS: Body Fluid QC Type(s) BF1Q,BF2Q
[2022-06-01 09:13] LABS: Pathologist Review Reviewed
== END 2022-05-30 14:46 | disposition home or self-care (01) ==
PROVIDERS: Physician Assistant; Emergency Provider Emergency Medicine; PCP Internal Medicine; Visit Provider Emergency Medicine
DX: M25.561 Pain in right knee (principal); M25.461 Effusion, right knee; I10 Essential (primary) hypertension; E78.00 Pure hypercholesterolemia, unspecified; F17.210 Nicotine dependence, cigarettes, uncomplicated; B34.9 Viral infection, unspecified; F41.9 Anxiety disorder, unspecified; Z79.899 Other long term (current) drug therapy; G47.419 Narcolepsy without cataplexy; Z99.89 Dependence on other enabling machines and devices; K21.9 Gastro-esophageal reflux disease without esophagitis; X58.XXXA Exposure to other specified factors, initial encounter
CPT/HCPCS: 20610; 73564; 80048; 85025; 85652; 86140; 87040; 87070; 87075; 87205; 87428; 89050; 89051; 89060; 96374; 96375; 99284; A4216; J2405

== ENCOUNTER → 2022-07-01 | Outpatient (CLI) | payer OTHER, SELFPAY ==
[2022-07-08 10:08] LABS: HPV APTIMA, High Risk Negative (Negative)
== END | disposition home or self-care (01) ==
PROVIDERS: PCP Internal Medicine; Visit Provider Obstetrics & Gynecology
DX: Z12.4 Encounter for screening for malignant neoplasm of cervix (principal)
CPT/HCPCS: 87624; 88175; G0145

== ENCOUNTER → 2022-07-08 | Outpatient (CLI) | payer OTHER, SELFPAY ==
--- NOTE | 2022-07-08 07:00 | BI_ITS ---
MAMMOGRAPHY - BILATERAL SCREENING REASON FOR EXAM: Female, 47 years old. Routine annual screening examination. PERTINENT HISTORY: Non-contributory. TECHNIQUE: Digital bilateral breast ania (3D mammographic acquisition) in the CC and MLO projections. 2-D mediolateral oblique (MLO) and craniocaudad (CC) views of both breasts were obtained. CAD: Full Field Digital Mammography with Computer Added Detection was performed. COMPARISON: Comparison is made with prior abdomen examination dated November 07, 2019. FINDINGS: Breast Composition: There are scattered areas of fibroglandular density. There are no dominant masses or suspicious calcifications. No other significant abnormalities are identified. There has been no significant change since the prior study. BI/SCRN MAMM (CAD)W/ANIA BILAT IMPRESSION: Stable bilateral screening mammogram. Yearly follow-up mammogram recommended. (A) ASSESSMENT CATEGORY: BIRADS Category 1: Negative. A letter regarding these results will be sent to the patient by the facility within 30 days. Approximately 10% of breast cancers are not detected by mammography. A normal mammogram should not delay biopsy of a clinically suspicious abnormality. [id number] Electronically Signed: Darwin Valiente MD at 12:19 EDT ,
== END | disposition home or self-care (01) ==
LOC: OPBI 06:57
PROVIDERS: PCP Internal Medicine; Referring Provider Obstetrics & Gynecology; Visit Provider Obstetrics & Gynecology
DX: Z12.31 Encounter for screening mammogram for malignant neoplasm of breast (principal)
CPT/HCPCS: 77063; 77067

== ENCOUNTER 2022-07-29 17:00 | Outpatient (RCR) | payer OTHER, SELFPAY ==
--- NOTE | 2022-06-29 17:05 | HP.PTEVAL ---
Patient's Visit Information MICHAEL WALTER is a 47 year old F referred to Physical Therapy by Dr. Faisal Jackson DO with a diagnosis of R knee arthroscopy 05/21/22. Date of Evaluation: 06/29/22 Physical Therapist: Dirk Shore, PT, ATC - Visit Plan Frequency: 2-3x /Week Duration: 4-6 Weeks Plan: Aquatic therapy consisting of R LE strengthening, core stab ex's, and HEP - Subjective DOS: 05/21/22. Pt reports she had meniscectomy performed on her R knee at that time. Pt reports she had the same surgery performed 8 months prior to this surgery for the same concern. Pt reports she is glad she had the surgery at this time. Pt notes she feels much better now that prior to surgery. Pt reports she is now excoted to begin her PT. Pt reports she was sent here for aquatic therapy at this time. Pt reports she has had inflammation in her knee since the surgery, but was able to get relief from a steroid. Pt notes she was told to focus on strengthening in a pain-free zone. No tingling or numbness in R LE at this time. No sleep difficulty at this time secondary to pain. 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 Pt has 2 stairs going into her house that she has to negotiate one at a time. - Pain R knee Pain Intensity (Out of 10): 1 Pain Intensity Range: 5 - Objective Neuro: B LE sensation is WNL to light touch. B patellar reflex= 2/3. Girth at joint line: L knee 58 cm, L knee 57 cm. ROM: L knee 0-127, R knee 0-113 degrees. MMT: L knee flex= 37, ext= 60 #F; R knee flex= 33, ext= 33 #F. Gait: Pt is able to ambulate 500 feet until feeling fatigued and having to stop secondary to pain - Balance/Special Test Scores Lower Extremity Functional Score: 35 - Goals Goal 1:: Decrease R knee pain x 50% to aid with ambulation Goal Time Frame: 4-6 Weeks Goal 2:: Increase R knee strength x 10 #F to aid with stair negotiation Goal Time Frame: 4-6 Weeks Goal 3:: I with HEP Goal Time Frame: 4-6 Weeks - Rehabilitation Potential Physical Therapy Diagnosis: R knee pain, weakness, and limited ROM in the R knee secondary to R knee arthroscopy Rehabilitation Potential: Good - Anticipated Interventions Patient/Client Instruction: Educate patient on: Condition, Plan of Care For the Purpose of:: To improve self management Therapeutic Exercise to Include: Strength training, Endurance training, Flexibilty training, In an aquatic setting, Dynamic Lumbar Stabilization For the Purpose of:: To decrease pain, To increase ROM, To improve muscle performance and motor function Cryotherapy (ice pack, ice massage): Yes For the Purpose of:: To decrease pain, To increase ROM, To improve muscle performance and motor function Thank you for the opportunity to evaluate your patient. For Medicare and Medicare HMO plans, please review the plan of care and approve it. It will need to be FAXED BACK to us at [phone] for Medicare purposes. For Medicare only, by signing this I certify the plan of care. Please let me know if there are questions or concerns regarding this plan of care. Physician Signature: Date:
--- NOTE | 2022-07-29 17:28 | HP.PTDCSUM ---
It has been my pleasure to treat MICHAEL WALTER referred by Dr. Faisal Jackson DO, with the diagnosis of R knee arthroscopy 05/21/22 for a total of 8 visit(s). Discharge Date: Please see the following information for a summary of their discharge status. Subjective: I am ready for discharge. I can do this stuff on my own R knee Pain Intensity (Out of 10): 1 % Improvement: 90 Objective/Function: R knee pain is 0-1/10. R knee MMT: Flex= 24, ext= 38 #F. Pt is I with HEP. Rx goals achieved Goal 1:: Decrease R knee pain x 50% to aid with ambulation Goal Progress: Goal Met Goal 2:: Increase R knee strength x 10 #F to aid with stair negotiation Goal Progress: Goal Met Goal 3:: I with HEP Goal Progress: Goal Met Plan: Discharge to HEP If there are questions or concerns regarding this patient's physical therapy, please feel free to call me at [phone]. Thank you for the referral of this patient. Sincerely, Dirk Shore, PT, ATC Balance/Gait/Functional tests - Balance/Special Test Scores Lower Extremity Functional Score: 54
== END 2022-07-29 19:00 | disposition home or self-care (01) ==
LOC: PT 17:00
PROVIDERS: PCP Internal Medicine; Referring Provider Orthopaedic Surgery; Visit Provider Orthopaedic Surgery
DX: M17.11 Unilateral primary osteoarthritis, right knee (principal); Z47.89 Encounter for other orthopedic aftercare
CPT/HCPCS: 97113; 97161; 97164

== ENCOUNTER 2023-02-15 07:00 | Outpatient (RCR) | payer OTHER, SELFPAY ==
--- NOTE | 2023-01-25 08:29 | HP.PTEVAL_ITS ---
Patient's Visit Information Visit Information Visit Information: MICHAEL WALTER is a 47 year old F referred to Physical Therapy by Dr. Curtis Santos MD with a diagnosis of UNILATERAL PRIMARY OSTEOARTHRITIS ,RIGHT KNEE. Date of Evaluation: 01/25/23 Physical Therapist: Balbir Robbins, PT, Cert MDT, OCS Visit Plan Frequency: 2x /Week Duration: 4 Weeks Plan: PT INTERVETIONS ROM ,FLEXABILITY KNEE ,STRENGTHNING EX'S QUADS/HAMS/HIP ,FUNCTIONAL STRENGTHENING ,HUSSEIN EX'S AND MODLATIES Subjective Subjective: This 47 y/o female presents to physical therapy with right unilateral primary osteoarthritis . Patient had arthroscopic meniscectomy 09/02 ,and 05/06 for 2nd surgery and currently has advanced DJD which patient is candidate for a TKR . Patient had x-rays of knee and x-ray of spine showed DDD . Patient and x-rays due to pain from knee to toe. If patient doesn't get better may need MRI lumbar spine for differential diagnosis and pain management. Location knee lateral an posterior and radiating to toe and ankle. No medication ,patient has tried series of gel injection in past and cortisone injection. Patient had lumbar surgery discectomy 2005.Aggravating factors extended distances , squat/kneeling and stairs one step at time. Alleviating rest ice. C/O paresthesia toe right. Patient has difficulty sleeping. Patient pain affects QOL and function and ADLS/job demands. Patient goals to have no pain. SOCIAL: single VOCATION: [employer]. Pain Right Knee: Pain Intensity (Out of 10): 4 Pain Intensity Range: 10 Objective Objective: POSTURE: genu recurvatum ,mild genu valgus GAIT: ambulates with reciprocal pattern PALAPTION: tender lateral joint line NEURO: c/o paresthesia/tingling toe AROM: 0-120 degrees right supine knee flexion MMT: quads/hams 4/5 ,(peak force) hip flexion 27.9 ,hip abd 22.8 STAIRS: one step at time with rail LUMBAR ROM: flexion WFL ,extension WFL ,side glides min loss Special Tests L/S Slump test left side: Negative L/S Slump test right side: Negative L/S Left Straight Leg Raise: Negative L/S Right Straight Leg Raise: Negative R Knee Justin - Meniscus: Positive R Knee Valgus - MCL: Positive R Knee Varus - LCL: Positive R Knee Patellar Grind - PFS: Positive Comments: h/o meniscectomy surgery Balance/Special Test Scores Lower Extremity Functional Score: 36 Goals Goal 1:: Patient to be I with HEP for knee Goal Time Frame: 4-6 Weeks Goal 2:: Patient to demonstrate 50% improvement with less pain and improved function Goal Time Frame: 4-6 Weeks Goal 3:: Patient to improve AROM knee flexion by 10 degrees to improve stairs Goal Time Frame: 4-6 Weeks Goal 4:: Patient to improve LEFS score by 5 points to improve QOL and function Goal Time Frame: 4-6 Weeks Goal 5:: Patient to improve peak force hip by 10 # to improve function with gait Goal Time Frame: 4-6 Weeks Goal 6:: Patient to improve lumbar ROM for function of recovery to for ADLS Goal Time Frame: 4-6 Weeks Rehabilitation Potential Physical Therapy Diagnosis: This patient has h/o meniscectomy with current advanced DJD which is candidate for TKA as well as lumbar surgery 2005 with possible radicular symptoms in lower leg with pain in knee with function ,stairs decrease ROM thus will benefit from skilled PT Rehabilitation Potential: Good Anticipated Interventions Patient/Client Instruction: Educate patient on: Condition and Plan of Care For the Purpose of:: To decrease pain, To increase ROM, To improve muscle performance and motor function, To improve ability to perform ADL's, To increase tolerance to activity/condition/position, To improve ability of physical actions for home/community/work/leisure, To improve health of tissue, To decrease soft tissue restriction, To improve endurance and To reduce risk of recurrence Therapeutic Exercise to Include: Strength training, Endurance training, Balance training, Postural training, Flexibilty training, Gait and locomotor training, Active ROM and Hussein Exercises Comment: QUADS/HAMS/HIP For the Purpose of:: To decrease pain, To increase ROM, To improve muscle performance and motor function, To improve ability to perform ADL's, To increase tolerance to activity/condition/position, To improve ability of physical actions for home/community/work/leisure, To improve health of tissue, To decrease soft tissue restriction, To increase flexibility/ROM, To reduce risk of recurrence and To improve tolerance to ADL's TENS: Yes IF ES: Yes Cryotherapy (ice pack, ice massage): Yes Thermo therapy (hot pack): Yes Ultrasound (thermal/non thermal): Yes For the Purpose of:: To decrease pain, To increase ROM, To improve nutrient delivery to tissue, To increase oxygenation perfusion, To improve health of tissue and To decrease soft tissue restriction Text: Thank you for the opportunity to evaluate your patient. For Medicare and Medicare HMO plans, please review the plan of care and approve it. It will need to be FAXED BACK to us at [phone] for Medicare purposes. For Medicare only, by signing this I certify the plan of care. Please let me know if there are questions or concerns regarding this plan of care. Physician Signature: Date:
--- NOTE | 2023-03-22 15:43 | HP.PT.NRP ---
Patient Information Patient Information: MICHAEL WALTER was seen in my office for initial evaluation on 01/25/23. The following Plan of Care was established for this patient: POC Established Initial Frequency: 2x /Week Initial Duration: 4 Weeks Anticipated Interventions Patient/Client Instruction: Educate patient on: Condition and Plan of Care For the Purpose of:: To decrease pain, To increase ROM, To improve muscle performance and motor function, To improve ability to perform ADL's, To increase tolerance to activity/condition/position, To improve ability of physical actions for home/community/work/leisure, To improve health of tissue, To decrease soft tissue restriction, To improve endurance and To reduce risk of recurrence Therapeutic Exercise to Include: Strength training, Endurance training, Balance training, Postural training, Flexibilty training, Gait and locomotor training, Active ROM and [place] Exercises For the Purpose of:: To decrease pain, To increase ROM, To improve muscle performance and motor function, To improve ability to perform ADL's, To increase tolerance to activity/condition/position, To improve ability of physical actions for home/community/work/leisure, To improve health of tissue, To decrease soft tissue restriction, To increase flexibility/ROM, To reduce risk of recurrence and To improve tolerance to ADL's TENS: Yes IF ES: Yes Cryotherapy (ice pack, ice massage): Yes Thermo therapy (hot pack): Yes Ultrasound (thermal/non thermal): Yes For the Purpose of:: To decrease pain, To increase ROM, To improve nutrient delivery to tissue, To increase oxygenation perfusion, To improve health of tissue and To decrease soft tissue restriction Last Seen Last Seen: This patient was last seen in our office . Pertinent comments regarding their Physical therapy will appear below: Patient seen for knee pain. But states a candidate for TKA will do ex's on at home. At this point I will be discontinuing this patient from physical therapy. I would be happy to see this patient again in the future if found appropriate by the physician. Thank you! Balbir Robbins, PT, Cert MDT, OCS Balance/Gait/Functional tests Balance/Special Test Scores Lower Extremity Functional Score: 36
== END 2023-02-15 19:00 | disposition home or self-care (01) ==
LOC: PT 07:00
PROVIDERS: PCP Internal Medicine; Referring Provider Orthopaedic Surgery Sports Medicine; Visit Provider Orthopaedic Surgery Sports Medicine
DX: M17.11 Unilateral primary osteoarthritis, right knee (principal)
CPT/HCPCS: 97110; 97162

== ENCOUNTER → 2023-02-18 | Outpatient (CLI) | payer OTHER, SELFPAY ==
[2023-02-18 15:05] LABS: D-Dimer Quantitative (DVT/PE) 0.43 FEU/ug/m (0.27-0.49)
== END | disposition home or self-care (01) ==
LOC: MTLAB 14:34
PROVIDERS: PCP Internal Medicine; Referring Provider Internal Medicine; Visit Provider Internal Medicine
DX: R06.02 Shortness of breath (principal)
CPT/HCPCS: 36415; 85379

== ENCOUNTER → 2023-03-03 | Outpatient (CLI) | payer OTHER, SELFPAY ==
--- NOTE | 2023-03-03 16:15 | MRI_ITS ---
EXAM: MR LUMBAR SPINE WITHOUT INTRAVENOUS CONTRAST CLINICAL INDICATION: pain TECHNIQUE: Multiplanar and multisequence MR images of the lumbar spine without intravenous contrast. COMPARISON: Lumbar spine radiographs, 07/16/2021 FINDINGS: VERTEBRAE: There is a hemangioma within the T12 vertebral body. Modic type II endplate signal changes are present inferiorly at L5 and at S1. Vertebral body heights are preserved. Normal alignment. No spondylolisthesis. There is preservation of the normal lumbar lordosis. SPINAL CORD: No significant abnormality. Normal position and signal intensity of the conus medullaris. SOFT TISSUES: No significant abnormality. DISCS/SPINAL CANAL/NEURAL FORAMINA: L1-L2: Mild disc bulge and mild bilateral facet arthrosis. No significant spinal canal or neural foraminal stenosis. L2-L3: Disc bulge and moderate bilateral facet arthrosis. Mild spinal canal stenosis. No significant neural foraminal narrowing. L3-L4: Moderate bilateral facet arthrosis. No disc herniation, spinal canal stenosis, or neural foraminal narrowing. L4-L5: Disc height loss and disc desiccation. Right central disc herniation superimposed upon a disc bulge and moderate bilateral facet arthrosis. Mild to moderate spinal canal stenosis and moderate bilateral neural foraminal narrowing. L5-S1: Right central to right foraminal disc herniation superimposed upon a disc bulge. Associated disc height loss and disc desiccation. Moderate facet arthrosis. At least abutment of the right S1 nerve root. Moderate bilateral foraminal narrowing and apparent impingement of the right foraminal L5 nerve root. Normal spinal canal and lateral recesses. OTHER FINDINGS: Partially visualized multilevel disc bulges in the thoracic spine with mild multilevel spinal canal stenosis. MRI/Spine Lumbar (Routine) IMPRESSION: Degenerative changes throughout the visualized thoracic and lumbar spine, worst at L5-S1 with impingement of the right L5 nerve root and at least abutment of the right S1 nerve root. Correlate for associated pain/radiculopathy. Electronically Signed: Gennaro March DO at 23:37 EST ,
== END | disposition home or self-care (01) ==
LOC: MRI 16:10
PROVIDERS: PCP Internal Medicine; Referring Provider Orthopaedic Surgery; Visit Provider Orthopaedic Surgery
DX: M51.37 Other intervertebral disc degeneration, lumbosacral region (principal)
CPT/HCPCS: 72148

== ENCOUNTER 2023-04-19 07:00 | Outpatient (RCR) | payer OTHER, SELFPAY ==
--- NOTE | 2023-03-25 08:58 | HP.PTEVAL_ITS ---
Patient's Visit Information Visit Information Visit Information: MICHAEL WALTER is a 48 year old F referred to Physical Therapy by Dr. Doyle Alvarez MD with a diagnosis of NERVE ROOT AND PLEXUS DISORDER. Date of Evaluation: 03/25/23 Physical Therapist: Balbir Robbins, PT, Cert MDT, OCS Visit Plan Frequency: 2x /Week Duration: 4 Weeks Plan: PT INTERVETIONS PER MD MODALTIES ESTIM JOHN LWER LEG ,DESENSTIVITY EX'S LOWER LEG COMMON PERONEAL NERVE AND ANR/FLOSSING Subjective Subjective: This 48 y/o female presents to physical therapy with nerve root and plexus problem . Patient was recently here for PT right knee pain with DJD and will need TKA . Patient seen DR Alvarez for back reviewed MRI and has h/o history laminectomy/discectomy L4-[address] reviewed MRI Degenerative changes throughout the visualized thoracic and lumbar spine, worst at L5-S1 with impingement of the right L5 nerve root and at least abutment of the right S1 nerve root. Correlate for associated pain/radiculopathy. Located lateral calf to great toe. Pain described as sharp shooting and paresthesia/tingling. Great toe on right side throbbing heavy. Aggravating factors walking ,wear shoes ,sitting and sheets at night. Alleviating factors nothing except Celebrex Coughing/sneezing-.Sleeping okay . Patient pain affects QOL and function and walking, Patient goals to decrease pain. Patient MD recommend SOCIAL: VOCATION: [employer] Pain Right Lower Extremity: Pain Intensity (Out of 10): 3 Pain Intensity Range: 10 Comment: KNEE BELOW Objective Objective: POSTURE: mild forward posture ,knee recurvatum GAIT: mild forward posture reciprocal pattern PALPATION: lateral knee and anterior tibia sensitive MMT: quads/hams 4/5 ,hip flexion 4/5 ,ankle 5/5 FLEXABLITY: hamstrings WNL ,calf WFL LUMBAR ROM: flexion min loss ,extension min loss ,side glides min loss Special Tests L/S Slump test left side: Negative L/S Slump test right side: Negative L/S Left Straight Leg Raise: Negative L/S Right Straight Leg Raise: Negative Lumbar Standing: Flexion - Mechanical Response: No effect Lumbar Standing: Flexion - Symptoms During Testing: No effect Lumbar Standing: Flexion - Symptoms After Testing: No effect Lumbar Standing: Extension - Mechanical Response: No effect Lumbar Standing: Extension - Symptoms During Testing: No effect Lumbar Standing: Extension - Symptoms After Testing: No effect Lumbar Standing: Right Side Glides - Mechanical Response: No effect Lumbar Standing: Right Side [place] - Symptoms During Testing: No effect Lumbar Standing: Right Side [place] - Symptoms After Testing: No effect Lumbar Standing: Left Side [place] - Mechanical Response: No effect Lumbar Standing: Left Side [place] - Symptoms During Testing: No effect Lumbar Standing: Left Side [place] - Symptoms After Testing: No effect Balance/Special Test Scores Lower Extremity Functional Score: 41 Goals Goal 1:: Patient to be I with HEP for decrease sensitivity Goal Time Frame: 4-6 Weeks Goal 2:: Patient to improve LFES score by 5 points to improve function and QOL Goal Time Frame: 4-6 Weeks Goal 3:: Patient to improve GAIT pattern with less symptoms 70% of the time Goal Time Frame: 4-6 Weeks Goal 4:: Patient to demonstrate 50% improvement with less pain and improved function Goal Time Frame: 4-6 Weeks Rehabilitation Potential Physical Therapy Diagnosis: This patient has h/o lumbar surgery seen DR common peroneal nerve neuropathy with sensitivity of nerve which affects function thus benefit from skilled PT Rehabilitation Potential: Good Anticipated Interventions Patient/Client Instruction: Educate patient on: Condition and Plan of Care For the Purpose of:: To decrease pain, To increase ROM, To improve muscle performance and motor function, To improve ability to perform ADL's, To increase tolerance to activity/condition/position, To improve ability of physical actions for home/community/work/leisure, To improve gait and locomotor functions, To improve health of tissue, To decrease soft tissue restriction and To increase flexibility/ROM Therapeutic Exercise to Include: Flexibilty training and Active ROM Comment: ANR/FLOSSING ,DESENAITIVITY EX'S For the Purpose of:: To decrease pain, To increase ROM, To improve nutrient delivery to tissue, To increase oxygenation perfusion, To improve health of tissue, To decrease soft tissue restriction and To increase flexibility/ROM TENS: Yes IF ES: Yes Cryotherapy (ice pack, ice massage): Yes Thermo therapy (hot pack): Yes Ultrasound (thermal/non thermal): Yes For the Purpose of:: To decrease pain, To increase ROM, To improve nutrient delivery to tissue, To increase oxygenation perfusion, To improve health of tissue and To decrease soft tissue restriction Text: Thank you for the opportunity to evaluate your patient. For Medicare and Medicare HMO plans, please review the plan of care and approve it. It will need to be FAXED BACK to us at [phone] for Medicare purposes. For Medicare only, by signing this I certify the plan of care. Please let me know if there are questions or concerns regarding this plan of care. Physician Signature: Date:
--- NOTE | 2023-04-19 07:27 | HP.PTDCSUM ---
Discharge Summary D/C summary: It has been my pleasure to treat MICHAEL WALTER referred by Dr. Doyle Alvarez MD, with the diagnosis of NERVE ROOT AND PLEXUS DISORDER for a total of 6 visit(s). Discharge Date: 04/19/23 Please see the following information for a summary of their discharge status. Subjective Subjective: Doing well overall Pain Right Lower Extremity: Pain Intensity (Out of 10): 0 Overall Improvement % Improvement: 90 Objective Objective/Function: POSTURE: mild forward posture ,knee recurvatum GAIT: mild forward posture reciprocal pattern PALPATION: lateral knee and anterior tibia sensitive MMT: quads/hams 4/5 ,hip flexion 4/5 ,ankle 5/5 FLEXABLITY: hamstrings WNL ,calf WFL LUMBAR ROM: flexion min loss ,extension min loss ,side glides min loss Goals Goal 1:: Patient to be I with HEP for decrease sensitivity Goal Progress: Goal Met Goal 2:: Patient to improve LFES score by 5 points to improve function and QOL Goal Progress: Goal Met Goal 3:: Patient to improve GAIT pattern with less symptoms 70% of the time Goal Progress: Goal Met Goal 4:: Patient to demonstrate 50% improvement with less pain and improved function Goal Progress: Goal Met Plan Plan: d/c D/C Information d/c sentence: If there are questions or concerns regarding this patient's physical therapy, please feel free to call me at [phone]. Thank you for the referral of this patient. Sincerely, Balbir Robbins, PT, Cert MDT, OCS Balance/Gait/Functional tests Balance/Special Test Scores Lower Extremity Functional Score: 66 Improvement % Improvement: 90
== END 2023-04-19 19:00 | disposition home or self-care (01) ==
LOC: PT 07:00
PROVIDERS: PCP Internal Medicine; Visit Provider Orthopaedic Surgery Orthopaedic Surgery of the Spine
DX: G54.9 Nerve root and plexus disorder, unspecified (principal)
CPT/HCPCS: 97014; 97032; 97110; 97162; 97530; G0283

== ENCOUNTER → 2023-06-21 | Outpatient (CLI) | payer OTHER, SELFPAY ==
[2023-06-21 16:49] LABS: Bacteria 0 SEEN /hpf (None Seen); Mucous, Urine 0 SEEN /hpf (<or=2+); Red Blood Cells-Urine 0 SEEN /hpf (0-5); White Blood Cells 0 SEEN /hpf (0-5)
[2023-06-21 17:32] LABS: Absolute Lymphocyte Count 1.84 X10^3/uL (0.83-4.51); Absolute Neutrophil Count 4.8 X10^3/uL (2.0-7.7); Basophil# 0.01 X10^3/uL; Basophil% 0.1 % (0-1); Color, Urine Yellow (Yellow); Eosinophil# 0.19 X10^3/uL; Eosinophils% 2.6 % (0-5); Glucose, Dipstick Normal (Normal); Hematocrit 40.7 % (37-47); Hemoglobin 13.7 g/dL (12.0-15.0); Ketone-Dipstick Negative (Negative); Leukocyte Esterase-Dipstick 25 /ul (Negative); Lymphocyte # 1.84 X10^3/ul (0.83-4.51); Lymphocyte % 25.1 % (19-41); Mean Corp Hgb Conc 33.7 g/dL (32-36); Mean Corpuscular Hgb 31.3 pg (27.0-32.0); Mean Corpuscular Volume 92.9 fL (81-99); Mean Platelet Vol. 9.1 fl (6.2-12.0); Monocyte% 6.8 % (0-10); NRBC Flagged by Analyzer 0 % (0-5); Neutrophil # 4.77 X10^3/uL (2.7-7.7); Nitrite-Dipstick Negative (Negative); Occult Blood-Urine 25 /ul (Negative); Platelet Count 278 K/mm3 (150-450); Protein-Dipstick Negative (Negative); RBC Distribution Width CV 12.2 % (11.6-14.6); RBC Distribution Width SD 41.8 fl (35.1-43.9); Red Blood Count 4.38 M/mm3 (4.2-5.4); Specific Gravity, Urine 1.025 (1.002-1.030); Urine Bilirubin Dipstick Negative (Negative); Urine Clarity Clear (Clear); Urine Urobilinogen 1 mg/dl (Normal); White Blood Count 7.3 K/mm3 (4.4-11.0)
[2023-06-21 17:48] LABS: Squamous Epithelial Cells - UA 0-5 SEEN /hpf (5-10)
[2023-06-21 17:53] LABS: ALB/GLOB Ratio 1.1 RATIO (0.9-2.4); AST(SGOT) 60 U/L (15-37); Alanine Aminotransfer ALT/SGPT 76 U/L (13-56); Albumin, Serum 3.8 g/dL (3.2-5.0); Alkaline Phosphatase 91 U/L (45-117); Anion Gap 8 (5-15); BUN 11 mg/dL (7-18); BUN/Creat Ratio 15.4 RATIO (10-20); Calcium,Total 9.4 mg/dL (8.5-10.1); Chloride 103 mmol/L (98-107); Creatinine, Serum 0.72 mg/dL (0.55-1.02); EST Glomerular Filtration Rate 92 mL/min (>60); Est Glom Filt Rate - Afr Amer 111 mL/min (>60); Globulin 3.6 g/dL (2.2-4.2); Glucose 116 mg/dL (74-106); Potassium 3.7 mmol/L (3.5-5.1); Protein, Total 7.4 g/dL (6.4-8.2); Sodium Level 139 mmol/L (136-145); Troponin-I HS 7 pg/mL (3.0-54.0)
== END | disposition home or self-care (01) ==
LOC: MTLAB 16:47
PROVIDERS: PCP Internal Medicine; Referring Provider Nurse Practitioner Family; Visit Provider Nurse Practitioner Family
DX: I10 Essential (primary) hypertension (principal); R07.9 Chest pain, unspecified
CPT/HCPCS: 36415; 80053; 81001; 84443; 84484; 85025

== ENCOUNTER → 2023-07-11 | Outpatient (CLI) | payer OTHER, SELFPAY ==
--- NOTE | 2023-07-11 07:05 | BI_ITS ---
MAMMOGRAPHY - BILATERAL SCREENING REASON FOR EXAM: Female, 48 years old. Routine annual screening examination. PERTINENT HISTORY: Non-contributory. TECHNIQUE: Digital bilateral breast ania (3D mammographic acquisition) in the CC and MLO projections. 2-D mediolateral oblique (MLO) and craniocaudad (CC) views of both breasts were obtained. CAD: Full Field Digital Mammography with Computer Added Detection was performed. COMPARISON: Comparison is made with prior study dated July 08, 2022 and April 17, 2010. FINDINGS: Breast Composition: There are scattered areas of fibroglandular density. There are no dominant masses or suspicious calcifications. No other significant abnormalities are identified. There has been no significant change since the prior study. BI/SCRN MAMM (CAD)W/ANIA BILAT IMPRESSION: Stable bilateral screening mammogram. Yearly follow-up mammogram recommended. (A) ASSESSMENT CATEGORY: BIRADS Category 1: Negative. A letter regarding these results will be sent to the patient by the facility within 30 days. Approximately 10% of breast cancers are not detected by mammography. A normal mammogram should not delay biopsy of a clinically suspicious abnormality. [id number] Electronically Signed: Darwin Valiente MD at 8:30 EDT ,
== END | disposition home or self-care (01) ==
LOC: OPBI 07:05
PROVIDERS: PCP Internal Medicine; Visit Provider Obstetrics & Gynecology
DX: Z12.31 Encounter for screening mammogram for malignant neoplasm of breast (principal)
CPT/HCPCS: 77063; 77067

== ENCOUNTER → 2024-07-11 | Outpatient (CLI) | payer OTHER, SELFPAY ==
--- NOTE | 2024-07-11 07:15 | BI_ITS ---
EXAM: SCRN MAMM (CAD)W/ANIA BILAT 07/11/2024 CLINICAL HISTORY: F, Age 49 y/o , SCREENING MAMMOGRAM TECHNIQUE: Bilateral screening digital breast tomosynthesis with 2D and 3D images. Computer aided detection. COMPARISON: Prior exam(s) dated 07/11/2023, 07/08/2022. FINDINGS: TISSUE DENSITY: The breast tissue is composed of scattered area of fibroglandular density.. Bilateral Breast Mammographic Findings: No significant masses, calcifications or other abnormalities are identified. BI/SCRN MAMM (CAD)W/ANIA BILAT IMPRESSION: Right Breast: BIRADS 1 NEGATIVE. Left Breast: BIRADS 1 NEGATIVE. OVERALL FINAL ASSESSMENT: BIRADS 1 NEGATIVE. RECOMMENDATION: Routine annual follow-up in 1 Year A letter with findings and recommendations will be mailed to the patient. Reading Location: [id number]
== END | disposition home or self-care (01) ==
LOC: OPBI 06:57
PROVIDERS: PCP Internal Medicine; Referring Provider Obstetrics & Gynecology; Visit Provider Obstetrics & Gynecology
DX: Z12.31 Encounter for screening mammogram for malignant neoplasm of breast (principal)
CPT/HCPCS: 77063; 77067